=== PATIENT | male | born 1975 | race Two or more races ===

== ENCOUNTER 2017-01-17 06:20 | Emergency (ER) | payer OTHER ==
[2017-01-17 06:37] VITALS: BP 134/101; PULSE 102; TEMP 97.8; BMI 42.0
--- NOTE | 2017-01-17 07:07 | PDOC ---
History of Present Illness - General Chief Complaint: Pain, Acute Stated Complaint: ABD PAIN Time Seen by Provider: 01/17/17 07:05 - History of Present Illness Initial Comments: 01/17/17 07:07 Mr. Ordoñez is a 42 yo male with a significant past medical history of reflux who presents to the emergency department complaining of abdominal discomfort starting around 9pm last night. He says that after he ate around 6pm he could feel his symptoms starting with a peak around midnight last night. He reports he has previously seen a GI doctor and was told to take an antacid for these symptoms but denies having done so today. The patient denies chest pain, shortness of breath, headache and dizziness. Denies fever, chills, nausea, vomit, diarrhea and constipation. Denies dysuria, frequency, urgency and hematuria. Allergies: NKDA Past surgical history: Denies Past History - Past Medical History Allergies/Adverse Reactions: Allergies Allergy/AdvReac Type Severity Reaction Status Date / Time No Known Allergies Allergy Verified 01/17/17 06:35 Home Medications: Ambulatory Orders NK [No Known Home Medication] 01/17/17 - Suicide/Smoking/Psychosocial Hx Smoking History: Never smoked Have you smoked in the past 12 months: No Information on smoking cessation initiated: No Hx Alcohol Use: No Drug/Substance Use Hx: No Review of Systems - Review of Systems Comments:: 01/17/17 07:07 GENERAL/CONSTITUTIONAL: No fever or chills. No weakness. HEAD, EYES, EARS, NOSE AND THROAT: No change in vision. No ear pain or discharge. No sore throat. CARDIOVASCULAR: No chest pain or shortness of breath RESPIRATORY: No cough, wheezing, or hemoptysis. GASTROINTESTINAL: +Abdominal discomfort with "acid" since 9pm last night. No nausea, vomiting, diarrhea or constipation. GENITOURINARY: No dysuria, frequency, or change in urination. MUSCULOSKELETAL: No joint or muscle swelling or pain. No neck or back pain. SKIN: No rash NEUROLOGIC: No headache, vertigo, loss of consciousness, or change in strength/ sensation. ENDOCRINE: No increased thirst. No abnormal weight change HEMATOLOGIC/LYMPHATIC: No anemia, easy bleeding, or history of blood clots. ALLERGIC/IMMUNOLOGIC: No hives or skin allergy. *Physical Exam - Vital Signs Last Vital Signs Temp Pulse Resp BP Pulse Ox 97.8 F 102 H 20 134/101 99 01/17/17 06:33 01/17/17 06:33 01/17/17 06:33 01/17/17 06:33 01/17/17 06:33 - Physical Exam Comments: 01/17/17 07:07 GENERAL: Awake, alert, and fully oriented, in no acute distress HEAD: No signs of trauma, normocephalic, atraumatic EYES: PERRLA, EOMI, sclera anicteric, conjunctiva clear ENT: Auricles normal inspection, hearing grossly normal, nares patent, oropharynx clear without exudates. Moist mucosa NECK: Normal ROM, supple, no lymphadenopathy, JVD, or masses LUNGS: No distress, speaks full sentences, clear to auscultation bilaterally HEART: Regular rate and rhythm, normal S1 and S2, no murmurs, rubs or gallops, peripheral pulses normal and equal bilaterally. ABDOMEN: Soft, nontender, normoactive bowel sounds. No guarding, no rebound. No masses EXTREMITIES: Normal inspection, Normal range of motion, no edema. No clubbing or cyanosis. NEUROLOGICAL: Cranial nerves II through XII grossly intact. Normal speech, normal gait, no focal sensorimotor deficits SKIN: Warm, Dry, normal turgor, no rashes or lesions noted. Medical Decision Making - Medical Decision Making 01/17/17 07:18 Mr. Ordoñez presents with abdominal discomfort starting at 6pm last night. He says that he has been told to take an antacid in the past by GI but denies doing so. 01/17/17 09:35 Relief achieved with GI cocktail and symethicone. Will have patient follow-up outpatient as needed with PCP and take OTC med as needed. *DC/Admit/Observation/Transfer Diagnosis at time of Disposition: Acid reflux Qualifiers: Esophagitis presence: esophagitis presence not specified Qualified Code(s): K21.9 - Gastro-esophageal reflux disease without esophagitis; K21.9 - Gastro- esophageal reflux disease without esophagitis; K21.9 - Gastro-esophageal reflux disease without esophagitis - Discharge Dispostion Disposition: HOME - Patient Instructions Printed Discharge Instructions: DI for Gastroesophageal Reflux Disease (GERD)
[2017-01-17] MEDS ORDERED: RANITIDINE HCL 150 MG/10 ML UNIT-DOSE PO ONE (07:22)
[2017-01-17] MEDS ORDERED: LIDOCAINE VISCOUS 2% ORAL/TOP 20 ML UNIT-DOSE CUP MM ONE (07:22)
[2017-01-17] MEDS ORDERED: MAG HYDROX/AL HYDROX/SIMETH 355 ML ORAL.SUSP PO ONE (07:22)
[2017-01-17] MEDS ORDERED: MAG HYDROX/AL HYDROX/SIMETH 30 ML UNIT-DOSE CUP PO ONE (07:45)
--- NOTE | 2017-01-17 08:02 | PDOC ---
Attending Attestation - Resident Resident Name: Rhys Sanders - ED Attending Attestation I have performed the following: I have examined & evaluated the patient, The case was reviewed & discussed with the resident, I agree w/resident's findings & plan, Exceptions are as noted - HPI HPI: 01/17/17 08:35 42 years old past medical history significant for GERD presents to the emergency department with epigastric abdominal discomfort starting last evening after eating. Patient describes a gassy sensation coming and going few minutes at a time. Denies chest pain denies shortness of breath. Currently pain-free - Physicial Exam PE: 01/17/17 08:35 Vitals: Triage Vital signs reviewed General Appearance: no acute distress, well nourished well developed, Head: Atraumatic, Neck: Supple;No Nucal rigidity Chest Wall: Nontender Cardiac: Regular rate and rhythym, no murmurs, no rubs, no gallops, Lungs: Clear to auscultation bilateral, good air movement bilaterally, Rectal: Exam deferred Extremities: Full range of motion to all extremities, no cyanosis, clubbing, or edema Skin: Warm and dry, no rashes or lesions, no rash, no petechiae] - Medical Decision Making 01/17/17 08:36 Well appearing no apparent distress no cardiac risk factors EKG performed no ST elevations nonspecific T-wave inversion in lead II Patient currently asymptomatic very mild reproducible epigastric discomfort on examination History and examination consistent with dyspepsia We'll treat with GI cocktail observe and reassess <Rodney Casey - Last Filed: 01/17/17 08:34> - Medical Decision Making 01/17/17 09:41 Re-eval. Patient well-appearing no apparent distress feels better. Findings, the need for followup and strict return instructions discussed with patient. <Hua Webb - Last Filed: 01/17/17 09:42>
[2017-01-17] MEDS ORDERED: LIDOCAINE VISCOUS 2% ORAL/TOP 20 ML UNIT-DOSE CUP ONE (08:04)
[2017-01-17] MEDS ORDERED: MAG HYDROX/AL HYDROX/SIMETH 30 ML UNIT-DOSE CUP ONE (08:05)
[2017-01-17] MEDS ORDERED: RANITIDINE HCL 150 MG TABLET (FP) ONE (08:05)
[2017-01-17] MEDS: SIMETHICONE 80 MG TAB.CHEW (FP) PO ONE ×2 (08:10→09:24)
--- NOTE | 2017-01-18 13:15 | EKG ---
Test Reason : Blood Pressure : / mmHG Vent. Rate : 096 BPM Atrial Rate : 096 BPM P-R Int : 134 ms QRS Dur : 092 ms QT Int : 358 ms P-R-T Axes : 050 036 002 degrees QTc Int : 452 ms NORMAL SINUS RHYTHM NONSPECIFIC T WAVE ABNORMALITY ABNORMAL ECG NO PREVIOUS ECGS AVAILABLE CLINICAL CORRELATION IS RECOMMENDED Confirmed by THEODORE BANDA MD ([id number]) on 01/18/2017 1:15:00 PM Referred By: Confirmed By:THEODORE BANDA MD
== END 2017-01-17 10:00 | disposition home or self-care (01) ==
LOC: JER 06:20
DX: K21.9 Gastro-esophageal reflux disease without esophagitis (principal)
CPT/HCPCS: 93005; 93010; 99282-25

== ENCOUNTER 2017-02-18 06:09 | Inpatient (IN) | payer OTHER ==
[2017-02-18 06:47] VITALS: BMI 42.0
--- NOTE | 2017-02-18 07:28 | PDOC ---
History of Present Illness <Karishma Croft - Last Filed: 02/18/17 11:09> - History of Present Illness Initial Comments: 02/18/17 09:03 The patient is a 42 year old male, with a significant past medical history of GERD (nexium daily), possible carcinoid tumor (diagnosed in the ED on CT scan ), who presents to the emergency department with one day of pain to his right upper quadrant. He reports he was sitting on the couch eating soup and juice last night when he developed a sharp, nonradiating, pain to his right upper abdomen. He also reports one episode of emesis, nonbloody, this morning, as well as during this current interaction. He reports the pain has been intermittent since the onset. He reports experiencing this pain once before on Wednesday 02/07 and was seen in the emergency department on 02/08/17 where he had negative ultrasounds and an abdominal CT showing a possible carcinoid tumor. The patient was advised to seek GI follow-up and was referred to Dr. Devang Andino (appt scheduled 03/06). Last normal bowel movement was this morning when he noted a few drops of BRBPR He denies chest pain, shortness of breath, headache and dizziness. He denies fever, chills, nausea, diarrhea and constipation. He denies dysuria, frequency, urgency and hematuria. Allergies: NKDA Past surgical history: none reported Social history: Pt denies toxic habits <Damián Collins - Last Filed: 02/18/17 11:21> - General Chief Complaint: Pain Stated Complaint: ABD PAIN Time Seen by Provider: 02/18/17 07:21 Past History <Karishma Croft - Last Filed: 02/18/17 11:09> - Past Medical History COPD: No Dementia: No Dialysis: No Kidney Stones: No Seizures: No Thyroid Disease: No Lung CA: No - Surgical History Cardiac Surgery: No Cholecystectomy: No Gastric Stapling: No Lung Surgery: No - Suicide/Smoking/Psychosocial Hx Smoking History: Never smoked Have you smoked in the past 12 months: No Information on smoking cessation initiated: No Hx Alcohol Use: No Drug/Substance Use Hx: No Substance Use Type: None <Damián Collins - Last Filed: 02/18/17 11:21> - Past Medical History Allergies/Adverse Reactions: Allergies Allergy/AdvReac Type Severity Reaction Status Date / Time No Known Allergies Allergy Verified 02/18/17 06:43 Home Medications: Ambulatory Orders Esomeprazole Magnesium [Nexium 24Hr] 20 mg PO DAILY #30 capsule. 02/08/17 Review of Systems - Review of Systems Comments:: 02/18/17 09:03 GENERAL/CONSTITUTIONAL: No fever or chills. No weakness. HEAD, EYES, EARS, NOSE AND THROAT: No change in vision. No ear pain or discharge. No sore throat. GASTROINTESTINAL: (+) RUQ pain, vomiting. No nausea, diarrhea or constipation. GENITOURINARY: No dysuria, frequency, or change in urination. CARDIOVASCULAR: No chest pain or shortness of breath. RESPIRATORY: No cough, wheezing, or hemoptysis. MUSCULOSKELETAL: No joint or muscle swelling or pain. No neck or back pain. SKIN: No rash NEUROLOGIC: No headache, vertigo, loss of consciousness, or change in strength/ sensation. ENDOCRINE: No increased thirst. No abnormal weight change. HEMATOLOGIC/LYMPHATIC: No anemia, easy bleeding, or history of blood clots. ALLERGIC/IMMUNOLOGIC: No hives or skin allergy. <Damián Collins - Last Filed: 02/18/17 11:21> *Physical Exam - Vital Signs Last Vital Signs Temp Pulse Resp BP Pulse Ox 97.8 F 88 14 116/89 100 02/18/17 06:44 02/18/17 06:44 02/18/17 06:44 02/18/17 06:44 02/18/17 06:44 <Karishma Croft - Last Filed: 02/18/17 11:09> - Vital Signs Last Vital Signs Temp Pulse Resp BP Pulse Ox 97.8 F 88 14 116/89 100 02/18/17 06:44 02/18/17 06:44 02/18/17 06:44 02/18/17 06:44 02/18/17 06:44 - Physical Exam Comments: 02/18/17 09:03 GENERAL: Awake, alert, and fully oriented, in no acute distress HEAD: No signs of trauma EYES: PERRLA, EOMI, sclera anicteric, conjunctiva clear ENT: Auricles normal inspection, hearing grossly normal, nares patent, oropharynx clear without exudates. Moist mucosa NECK: Normal ROM, supple, no lymphadenopathy, JVD, or masses LUNGS: Breath sounds equal, clear to auscultation bilaterally. No wheezes, and no crackles HEART: Regular rate and rhythm, normal S1 and S2, no murmurs, rubs or gallops ABDOMEN: Soft, +RUQ ttp, negative murphys sign, normoactive bowel sounds. No guarding, no rebound. No masses RECTAL: brown stool, occult guaic pending EXTREMITIES: Normal range of motion, no edema. No clubbing or cyanosis. No cords, erythema, or tenderness BACK: No midline spinal tenderness in cervical/thoracic/lumbar region NEUROLOGICAL: Normal speech, cranial nerves intact, negative pronator drift, 5/ 5 strength in all 4 extremities, normal sensation to light touch in all 4 extremities, normal cerebellar exam, normal gait, normal reflexes and tone SKIN: Warm, Dry, normal turgor, no rashes or lesions noted. <Nassef,Yomna - Last Filed: 02/18/17 11:21> ED Treatment Course - LABORATORY CBC & Chemistry Diagram: 02/18/17 07:50 02/18/17 07:50 - ADDITIONAL ORDERS Additional order review: Laboratory Results 02/18/17 02/18/17 07:50 07:50 Sodium 141 Potassium 4.2 Chloride 101 Carbon Dioxide 29 Anion Gap 11 BUN 11 Creatinine 1.3 Creat Clearance w eGFR > 60 Random Glucose 122 H D Calcium 10.3 H Magnesium 2.6 H Total Bilirubin 0.3 D AST 20 ALT 35 Alkaline Phosphatase 109 Total Protein 8.6 H Albumin 4.2 Lipase 227 Urine Color [place] Urine Appearance Cloudy Urine pH 5.0 D Ur Specific [place] 1.033 Urine Protein 3+ H Urine Glucose (UA) Negative Urine Ketones Trace H Urine Blood Negative Urine Nitrite Negative Urine Bilirubin 2.0 Urine Urobilinogen Negative 02/18/17 07:50 RBC 5.44 MCV 83.5 MCHC 31.7 L RDW 13.5 MPV 9.9 Neutrophils % 85.4 H Lymphocytes % 8.3 D Monocytes % 5.4 Eosinophils % 0.5 Basophils % 0.4 - RADIOLOGY Radiograph Interpretation: EXAM#: TYPE/EXAM: RESULT: [id number] US/ABDOMEN US -LIMITED Right upper quadrant pain Right upper abdomen ultrasound. Compared to prior upper abdomen ultrasound dated 02/02/2017 The liver measures 16 cm in sagittal length with a moderately dense echotexture. The gallbladder is partially distended with borderline thickening of its wall. No gallstones or pericholecystic free fluid are identified. No intra or extrahepatic bile duct dilatation is seen. The right kidney measures 10.6 cm sagittal length and appears unremarkable. The pancreas was not visualized presumably due to overlying bowel gas. Visualized portion of the proximal abdominal aorta and inferior vena cava appear unremarkable. Normal flow in the main portal vein. IMPRESSION: Hepatic steatosis without gross evidence of a discrete lesion. Borderline thickening of the gallbladder wall likely due to inadequate distention without evidence of gallstones or pericholecystic free fluid. Nonvisualization of the pancreas presumably due to overlying bowel gas. Normal- appearing right kidney Reported By: Tomy Zayas MD 02/18/17 0937 - Medications Given in the ED: ED Medications Discontinued Medications Generic Name Dose Route Start Last Admin Trade Name Freq PRN Reason Stop Dose Admin Famotidine/Sodium Chloride 20 mg in 50 mls @ 100 mls/hr 02/18/17 07:31 07:55 Pepcid 20 Mg Premixed Ivpb - IVPB 02/18/17 08:00 100 mls/hr ONCE ONE Administration Ondansetron HCl 4 mg 02/18/17 07:31 02/18/17 07:55 Zofran Injection IVPUSH 02/18/17 07:32 4 mg ONCE ONE Administration Sodium Chloride 1,000 ml 02/18/17 07:31 02/18/17 08:08 Normal Saline - IV 02/18/17 07:32 1,000 ml ONCE ONE Administration <Karishma Croft - Last Filed: 02/18/17 11:09> - LABORATORY CBC & Chemistry Diagram: 02/18/17 07:50 02/18/17 07:50 <Damián Collins - Last Filed: 02/18/17 11:21> Medical Decision Making - Medical Decision Making 02/18/17 09:58 Dr. Andino, GI, was called at the office and the patient's case was discussed. 02/18/17 10:30 Dr. Raymundo was called at the office requesting a call back for service admission of this patient. I have been informed Dr. Aliya Gloria is covering for ER today. 02/18/17 10:49 Dr. Sellers was paged via phone answering service at this time. I have been informed Dr. Cuello is covering and will return the call shortly. 02/18/17 10:56 Dr. Cuello returned the call and the patient's case was discussed. He will come to see the patient. 02/18/17 10:58 Dr. Pisano returned the call and the patient's case was discussed at length. Dr. Pisano will admit this patient. <Karishma Croft - Last Filed: 02/18/17 11:09> - Medical Decision Making 02/18/17 11:17 42-year-old male with five recent visits the emergency department with abdominal pain associated with nausea and vomiting presents today with the same. His workup has thus far included normal ultrasound x2 however a CT done here 10 days ago that reveals possible carcinoid tumor. Labs today are remarkable for an uptrending leukocytosis to 19 from 13 (ten days ago) and 12 prior to that. Case has been discussed with Dr. Andino (GI) with whom the patient had an appointment next month who recommends surgical evaluation for possible exploration and admission. Case has been discussed with Dr. Solorzano from surgery who will see the patient. Patient has been admitted to Dr. Pisano for further management. Case discussed in detail with admitting physician including history, physical exam and ancillary studies. Admitting physician has assumed care for the patient, will follow all pending diagnostics and will complete the evaluation and treatment. <Damián Collins - Last Filed: 02/18/17 11:21> *DC/Admit/Observation/Transfer - Attestations Scribe Attestion: 02/18/17 09:53 Documentation prepared by Karishma Croft, acting as medical collections representative for Damián Collins MD, <Karishma Croft - Last Filed: 02/18/17 11:09> - Discharge Dispostion Admit: Yes - Attestations Physician Attestion: 02/18/17 11:21 I, Dr. Damián Collins MD, attest that this document has been prepared under my direction and personally reviewed by me in its entirety. I further attest, that it accurately reflects all work, treatment, procedures and medical decision -making performed by me. <Damián Collins - Last Filed: 02/18/17 11:21> Diagnosis at time of Disposition: Abdominal pain - Discharge Dispostion Condition at time of disposition: Stable
[2017-02-18] MEDS ORDERED: FAMOTIDINE 20 MG/50 ML IVPB 20 MG/50 ML MG IVPB ONE (07:31)
[2017-02-18] MEDS ORDERED: ONDANSETRON 4 MG/2 ML VIAL IVPUSH ONE (07:31)
[2017-02-18] MEDS ORDERED: SODIUM CHLORIDE 0.9% 500 ML INFUS.BAG IV ONE (07:31)
[2017-02-18] MEDS ORDERED: ONDANSETRON 4 MG/2 ML VIAL ONE (07:39)
[2017-02-18 08:06] LABS: BASOPHIL 0.4 % (0-2.0); EOSINOPHIL 0.5 % (0-4.5); MCH 26.4 pg (25.7-33.7); MCHC 31.7 g/dl (32.0-35.9); MEAN CELL VOLUME 83.5 fl (80-96); MEAN PLT VOLUME 9.9 fl (7.5-11.1); NEUTROPHILS 85.4 % (42.8-82.8); PLATELET COUNT 381 K/MM3 (134-434); RDW 13.5 % (11.9-15.9); WHITE BLOOD COUNT 19.4 K/mm3 (4.0-10.0)
[2017-02-18 08:35] LABS: ALBUMIN 4.2 g/dl (3.4-5.0); ANION GAP 11 (8-16); BILIRUBIN,TOTAL 0.3 mg/dL (0.2-1.0); CALCIUM 10.3 mg/dL (8.5-10.1); CO2 29 mmol/L (21-32); CREATININE 1.3 mg/dL (0.7-1.3); GLUCOSE,RANDOM 122 mg/dL (74-106); SGPT/ALT 35 U/L (12-78); TOT PROT 8.6 g/dl (6.4-8.2)
[2017-02-18 08:36] LABS: ALK PHOS 109 U/L (45-117)
[2017-02-18 08:54] LABS: MAGNESIUM 2.6 mg/dL (1.8-2.4); SGOT/AST 20 U/L (15-37)
[2017-02-18 09:05] LABS: URINE APPEARANCE CLOUDY; URINE BLOOD NEGATIVE (NEGATIVE); URINE COLOR AMBER; URINE GLUCOSE (UA) NEGATIVE (NEGATIVE); URINE KETONE TRACE (NEGATIVE); URINE NITRITE NEGATIVE (NEGATIVE); URINE UROBILINOGEN NEGATIVE mg/dL (0.2-1.0)
[2017-02-18 09:29] LABS: URINE PROTEIN 3+ (NEGATIVE)
[2017-02-18 11:28] LABS: URINE HYALINE CAST 44 /lpf; URINE MUCUS MANY; URINE RBC 3 /hpf (0-3); URINE WBC 9 /hpf (3-5)
--- NOTE | 2017-02-18 12:29 | CONSULT ---
Consult Consult Specialty:: abdominal pain Referred by:: antoinette klein Reason for Consultation:: abdominal pain multiple visits to ED - History of Present Illness Chief Complaint: right upper abdominal pain History of Present Illness: 42yo male PMH obesity, GERD on nexium presented to the ED with abdominal pain. The pain is focal to the right upper quadrant without radiation. Its is improved now. He reported that he has changed his diet recently from primarily fast food to now mainly fruit shakes. His complaints are vague, no flushing, no sweating, no indigestion, no bloating, no nausea or vomiting was reported. He reports the pain has been intermittent since the onset. He reports experiencing this pain once before on Wednesday 02/07 and was seen in the emergency department on 02/08/17 where he had negative ultrasounds and an abdominal CT showing ileum thickening. The patient was advised to follow-up with IG and was referred to Dr. Devang Andino (appt scheduled 03/06). He denies any changes in bowel habits, he moves his bowel 3 times a day, its normal frequency and consistency. he denies any blood in stool, constipation or diarrhea. we were asked to assess given his findings to date. 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 02/08/17 Review of Systems - Review of Systems Constitutional: denies: Chills, Fever, Unintentional Wgt. Loss Eyes: denies: Blurred Vision, Recent Change in Vision HENT: denies: Difficult Swallowing, Throat Pain Neck: denies: Stiffness, Swollen Glands Cardiovascular: denies: Chest Pain, Palpitations, Shortness of Breath Respiratory: denies: Cough, SOB Gastrointestinal: reports: Abdominal Pain (intermitent abdominal pain with meals , worse after food) Genitourinary: denies: Burning, Discharge Breasts: denies: Lumps, Pain Musculoskeletal: denies: Back Pain, Joint Pain Integumentary: denies: Lesions, Rash Neurological: denies: Headache, Syncope Endocrine: denies: Unexplained Weight Gain, Unexplained Weight Loss Psychiatric: denies: Anxiety, Depression Physical Exam Vital Signs: Vital Signs Temperature 97.8 F 02/18/17 06:44 Pulse Rate 88 02/18/17 06:44 Respiratory Rate 14 02/18/17 06:44 Blood Pressure 116/89 02/18/17 06:44 O2 Sat by Pulse Oximetry (%) 100 02/18/17 06:44 Vital Signs Period Temp Pulse Resp BP Sys/[place] Pulse Ox Last 24 Hr 97.8 F 88 14 116/89 100 Constitutional: Yes: No Distress, Calm, Obese Eyes: Yes: Conjunctiva Clear, EOM Intact HENT: Yes: Atraumatic, Normocephalic Neck: Yes: Supple, Trachea Midline Cardiovascular: Yes: Regular Rate and Rhythm, S1, S2. No: Murmur Respiratory: Yes: Regular, CTA Bilaterally Gastrointestinal: Yes: Normal Bowel Sounds, Soft, Abdomen, Obese, Tenderness ( Discomfort of deep palpation of right upper quadrant, No tenderness in RLQ), Other (negative negro's). No: Distention, Hernia, Palpable Mass, Tenderness, Epigastrium, Tenderness, Rebound ...Rectal Exam: Yes: Deferred Renal/: No: CVA Tenderness - Left, CVA Tenderness - Right Musculoskeletal: No: Muscle Pain, Muscle Weakness Extremities: No: Cool, Cyanosis Integumentary: No: Body Piercing Neurological: Yes: Alert, Oriented ...Motor Strength: WNL, LLE, RLE Psychiatric: Yes: Alert, Oriented Labs: CBC, BMP 02/18/17 07:50 02/18/17 07:50 CMP Sodium 141 mmol/L (136-145) 02/18/17 07:50 Potassium 4.2 mmol/L (3.5-5.1) 02/18/17 07:50 Chloride 101 mmol/L (98-107) 02/18/17 07:50 Carbon Dioxide 29 mmol/L (21-32) 02/18/17 07:50 Anion Gap 11 (8-16) 02/18/17 07:50 BUN 11 mg/dL (7-18) 02/18/17 07:50 Creatinine 1.3 mg/dL (0.7-1.3) 02/18/17 07:50 Creat Clearance w eGFR > 60 (>60) 02/18/17 07:50 Random Glucose 122 mg/dL (74-106) H D 02/18/17 07:50 Calcium 10.3 mg/dL (8.5-10.1) H 02/18/17 07:50 Magnesium 2.6 mg/dL (1.8-2.4) H 02/18/17 07:50 Total Bilirubin 0.3 mg/dL (0.2-1.0) D 02/18/17 07:50 AST 20 U/L (15-37) 02/18/17 07:50 ALT 35 U/L (12-78) 02/18/17 07:50 Alkaline Phosphatase 109 U/L (45-117) 02/18/17 07:50 Total Protein 8.6 g/dl (6.4-8.2) H 02/18/17 07:50 Albumin 4.2 g/dl (3.4-5.0) 02/18/17 07:50 Lipase 227 U/L (73-393) 02/18/17 07:50 Abnormal Lab Results 02/18/17 02/18/17 02/18/17 07:50 07:50 07:50 WBC 19.4 H D MCHC 31.7 L Neutrophils % 85.4 H Random Glucose 122 H D Calcium 10.3 H Magnesium 2.6 H Total Protein 8.6 H Urine Protein 3+ H Urine Ketones Trace H Imaging - Results Cat Scan: Report Reviewed, Image Reviewed, Other (Mid to terminal ileum is thickened, gastro entritis vs inflammatory bowel disease) Ultrasound: Report Reviewed, Image Reviewed, Other (discussed with radiologist caontracted GB with minimal thickening of the wall normal is 3 his is 3.3 GB is contracted i.e. emptying with out any other associated signs of acute inflamation) Problem List - Problems (1) Abdominal pain Assessment/Plan: 42 yo male obesity and GERD, complaining of abdominal pain. Case was reviewed and discussed with radiologist, The CT from 11/11 - thickened segment of mid to terminal ileum, could be carcinoid but he doesnt have symptoms. could also be IBD or just a transient gastroenteritis. He also doesnt appear to have cholecystitis. Doesn not appear to have an acute need for surgery but we will follow. NPO and IVF hydration Repeat labs in AM, consider a endocrine workup for carcinoid serum 5HT or urine 5HIAA Consider STEPHANIE, Rhematoid Factor, ESR, CRP - inflammatory bowel disease (chron's) , CEA - tumor marker f/u GI evaluation for IBD serial exams Code(s): R10.9 - UNSPECIFIED ABDOMINAL PAIN (2) Gastroenteritis Assessment/Plan: IVF hydration bowel rest GI prohylaxsis Code(s): K52.9 - NONINFECTIVE GASTROENTERITIS AND COLITIS, UNSPECIFIED (3) Obesity (BMI 35.0-39.9 without comorbidity) Code(s): E66.9 - OBESITY, UNSPECIFIED (4) Acid reflux Assessment/Plan: appreciate GI recommendations Code(s): K21.9 - GASTRO-ESOPHAGEAL REFLUX DISEASE WITHOUT ESOPHAGITIS Qualifiers: Esophagitis presence: esophagitis presence not specified Qualified Code(s) : K21.9 - Gastro-esophageal reflux disease without esophagitis
[2017-02-18 13:36] LABS: URINE LEUK ESTERASE Negative (NEGATIVE)
[2017-02-18] MEDS ORDERED: ONDANSETRON 4 MG/2 ML VIAL IVPUSH PRN (14:55)
--- NOTE | 2017-02-18 14:58 | HP ---
Admitting History and Physical - Admission History of Present Illness: The patient is a 42 year old male, with a significant past medical history of GERD (nexium daily), possible carcinoid tumor (diagnosed in the ED on CT scan ), who presents to the emergency department with one day of pain to his right upper quadrant. He reports he was sitting on the couch eating soup and juice last night when he developed a sharp, nonradiating, pain to his right upper abdomen. He also reports one episode of emesis, nonbloody, this morning, as well as during this current interaction. He reports the pain has been intermittent since the onset. He reports experiencing this pain once before on Wednesday 02/07 and was seen in the emergency department on 02/08/17 where he had negative ultrasounds and an abdominal CT showing a possible carcinoid tumor. The patient was advised to seek GI follow-up and was referred to Dr. Devang Andino (appt scheduled 03/06). Last normal bowel movement was this morning when he noted a few drops of BRBPR He denies chest pain, shortness of breath, headache and dizziness. He denies fever, chills, nausea, diarrhea and constipation. He denies dysuria, frequency, urgency and hematuria. 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 02/08/17 Review of Systems - Review of Systems Gastrointestinal: reports: Abdominal Pain, Bloating Physical Examination Vital Signs: Vital Signs Temperature 98.7 F 02/18/17 14:30 Pulse Rate 96 H 02/18/17 14:30 Respiratory Rate 18 02/18/17 14:30 Blood Pressure 118/87 02/18/17 14:30 O2 Sat by Pulse Oximetry (%) 99 02/18/17 13:31 Constitutional: Yes: Calm Cardiovascular: Yes: Regular Rate and Rhythm, S1, S2 Respiratory: Yes: CTA Bilaterally Gastrointestinal: Yes: Normal Bowel Sounds, Soft, Hypoactive Bowel Sounds Edema: No Labs: CBC, BMP 02/18/17 07:50 02/18/17 07:50 Problem List - Problems (1) Abdominal pain Assessment/Plan: patient had CT scan done on 02/08/17 shows small bowel wall thickening in RLQ qith dilatation if loops of small bowel proximally canot rule out neoplasm NPO for now ivf GI eval ppi scd zofran prn leukocytosis maybe sec to ? tumor no fever no dysuria no cough Code(s): R10.9 - UNSPECIFIED ABDOMINAL PAIN (2) Acid reflux Assessment/Plan: ppi Code(s): K21.9 - GASTRO-ESOPHAGEAL REFLUX DISEASE WITHOUT ESOPHAGITIS Qualifiers: Esophagitis presence: esophagitis presence not specified Qualified Code(s) : K21.9 - Gastro-esophageal reflux disease without esophagitis
[2017-02-18] MEDS: SODIUM CHLORIDE 1,000 ML IV SCH (15:51)
[2017-02-18] MEDS: morphine SULFATE 4 MG/ML VIAL IVPUSH PRN (20:15)
[2017-02-19] MEDS ORDERED: ceFAZolin SODIUM 1 GM VIAL IVPB ONE
[2017-02-19] MEDS: SODIUM CHLORIDE 1,000 ML IV SCH ×2 (01:56→10:43)
[2017-02-19] MEDS: morphine SULFATE 4 MG/ML VIAL IVPUSH PRN ×2 (01:59→14:02)
[2017-02-19 08:28] LABS: BASOPHIL 0.3 % (0-2.0); MCH 26.7 pg (25.7-33.7); MCHC 31.5 g/dl (32.0-35.9); MEAN CELL VOLUME 84.5 fl (80-96); MEAN PLT VOLUME 9.9 fl (7.5-11.1); NEUTROPHILS 75.1 % (42.8-82.8); PLATELET COUNT 269 K/MM3 (134-434); RDW 13.7 % (11.9-15.9); WHITE BLOOD COUNT 12.4 K/mm3 (4.0-10.0)
[2017-02-19 08:47] LABS: INR 1.09 (0.82-1.09); PROTHROMBIN TIME (PATIENT) 12.3 SEC (9.98-11.88)
[2017-02-19 09:00] LABS: ALBUMIN 3.1 g/dl (3.4-5.0); ALK PHOS 79 U/L (45-117); ANION GAP 7 (8-16); BILIRUBIN,TOTAL 0.4 mg/dL (0.2-1.0); CALCIUM 8.7 mg/dL (8.5-10.1); CO2 29 mmol/L (21-32); GLUCOSE,RANDOM 90 mg/dL (74-106); MAGNESIUM 2.1 mg/dL (1.8-2.4); PHOSPHOROUS 3.6 mg/dL (2.5-4.9); SGOT/AST 13 U/L (15-37); SGPT/ALT 31 U/L (12-78); TOT PROT 6.2 g/dl (6.4-8.2)
--- NOTE | 2017-02-19 09:06 | PN ---
Progress Note, Physician Chief Complaint: abdominal plain History of Present Illness: 42yo male PMH obesity, GERD on nexium, has been NPO and abdominal pain has resolved. He is comfortable now passing gas and stool. He has been afebrile. - Current Medication List Current Medications: Active Medications Sodium Chloride (Normal Saline -) 1,000 mls @ 100 mls/hr IV ASDIR CHANTELLE Last Admin: 02/19/17 01:56 Dose: 100 mls/hr Morphine Sulfate (Morphine Sulfate) 4 mg IVPUSH Q6H PRN PRN Reason: PRN Last Admin: 02/19/17 01:59 Dose: 4 mg Ondansetron HCl (Zofran Injection) 4 mg IVPUSH Q6H PRN PRN Reason: NAUSEA AND/OR VOMITING Pantoprazole Sodium (Protonix Iv) 40 mg IVPUSH DAILY [facility] - Objective Vital Signs: Vital Signs Temperature 98.0 F 02/19/17 08:52 Pulse Rate 82 02/19/17 08:52 Respiratory Rate 17 02/19/17 08:52 Blood Pressure 135/72 02/19/17 08:52 O2 Sat by Pulse Oximetry (%) 100 02/18/17 22:00 Vital Signs Period Temp Pulse Resp BP Sys/[place] Pulse Ox Last 24 Hr 97.8 F-98.7 F 75-96 17-18 117-135/72-87 99-100 Constitutional: Yes: No Distress, Calm, Obese Eyes: Yes: Conjunctiva Clear, EOM Intact HENT: Yes: Atraumatic, Normocephalic Neck: Yes: Supple, Trachea Midline Cardiovascular: Yes: Regular Rate and Rhythm, S1, S2. No: Murmur Respiratory: Yes: Regular, CTA Bilaterally Gastrointestinal: Yes: Normal Bowel Sounds, Soft, Abdomen, Obese. No: Palpable Mass, Tenderness, Tenderness, Epigastrium, Tenderness, Rebound, Vomiting Extremities: No: Calf Tenderness, Cool, Cyanosis Edema: No Peripheral Pulses WNL: Yes Peripheral Pulses: Left Radial: 2+, Right Radial: 2+, Left Doralis Pedis: 2+, Right Dorsalis Pedis: 2+ Neurological: Yes: Alert, Oriented Psychiatric: Yes: Alert, Oriented Labs: CBC, BMP 02/19/17 07:45 02/19/17 07:45 INR, PTT INR 1.09 (0.82-1.09) 02/19/17 07:45 Intake & Output 02/18/17 02/19/17 02/19/17 23:59 07:59 15:59 Intake Total 1300 800 Balance 1300 800 Intake: IV 900 800 Normal Saline - 1,000 ml 200 @ 100 mls/hr IV ASDIR CHANTELLE Rx#:[id number] SL 02/18/17 700 800 Oral 400 0 Other: # Unmeasured Voids Void 3 Problem List - Problems (1) Abdominal pain Assessment/Plan: 42 yo male obesity and GERD, abdominal pain has subsided. Considering carcinoid , IBD or gastroenteritis. NPO and IVF hydration f/u repeat labs and urine 5HIAA f/u GI evaluation for IBD, TB enteritis we will follow closely with serial exams Code(s): R10.9 - UNSPECIFIED ABDOMINAL PAIN (2) Gastroenteritis Assessment/Plan: IVF hydration bowel rest GI prohylaxsis Code(s): K52.9 - NONINFECTIVE GASTROENTERITIS AND COLITIS, UNSPECIFIED (3) Obesity (BMI 35.0-39.9 without comorbidity) Code(s): E66.9 - OBESITY, UNSPECIFIED (4) Acid reflux Assessment/Plan: appreciate GI recommendations Code(s): K21.9 - GASTRO-ESOPHAGEAL REFLUX DISEASE WITHOUT ESOPHAGITIS Qualifiers: Esophagitis presence: esophagitis presence not specified Qualified Code(s) : K21.9 - Gastro-esophageal reflux disease without esophagitis
--- NOTE | 2017-02-19 09:48 | PN ---
Progress Note (short form) - Note Progress Note: NPO except medications Prep as instructed EGD/Colonoscopy @ 430 pm today Discussed with the patient and his nurse
[2017-02-19] MEDS ORDERED: PEG3350/SOD SULF,BICARB,CL/KCL 4,000 ML SOLN.RECON PO ONE (10:00)
[2017-02-19] MEDS ORDERED: PANTOPRAZOLE SODIUM 40 MG VIAL IVPUSH SCH (10:00)
[2017-02-19] MEDS ORDERED: PROPOFOL 20 ML ONE ×4 (16:54→17:45)
--- NOTE | 2017-02-19 17:58 | PROC ---
Endoscopy Procedure Endoscopy procedure completed. Please see scanned procedure report. Duodenitis was found on EGD Pancolitis, most pronounced in left colon and rectum. Normal TI and perianal area. Inflammatory-like polyp was found in the sigmoid Multiple biopsies and a polypectomy performed Suspect IBD - Ulcerative colitis Follow biopsies in 1 week as OP OK to start low residual diet and D/C home with 1 week follow up
--- NOTE | 2017-02-19 19:23 | PN ---
Progress Note, Physician Chief Complaint: ABDOMINAL PAIN History of Present Illness: NAD, in bed had EGD today----> Ulcerative colitis seen by GI on PPI - Current Medication List Current Medications: Active Medications Sodium Chloride (Normal Saline -) 1,000 mls @ 100 mls/hr IV ASDIR [facility] Last Admin: 02/19/17 10:43 Dose: 100 mls/hr Morphine Sulfate (Morphine Sulfate) 4 mg IVPUSH Q6H PRN PRN Reason: PRN Last Admin: 02/19/17 14:02 Dose: 4 mg Ondansetron HCl (Zofran Injection) 4 mg IVPUSH Q6H PRN PRN Reason: NAUSEA AND/OR VOMITING Pantoprazole Sodium (Protonix Iv) 40 mg IVPUSH DAILY [facility] Last Admin: 02/19/17 10:04 Dose: 40 mg - Objective Vital Signs: Vital Signs Temperature 97.2 F L 02/19/17 18:52 Pulse Rate 86 02/19/17 18:52 Respiratory Rate 20 02/19/17 18:52 Blood Pressure 157/105 02/19/17 18:52 O2 Sat by Pulse Oximetry (%) 99 02/19/17 18:35 Constitutional: Yes: Well Nourished, No Distress, Calm Cardiovascular: Yes: Regular Rate and Rhythm Respiratory: Yes: Regular Gastrointestinal: Yes: Normal Bowel Sounds, Soft, Abdomen, Obese Edema: No Peripheral Pulses WNL: Yes Neurological: Yes: Alert, Oriented Psychiatric: Yes: Alert, Oriented Labs: CBC, BMP 02/19/17 07:45 02/19/17 07:45 INR, PTT INR 1.09 (0.82-1.09) 02/19/17 07:45 Problem List - Problems (1) Ulcerative colitis Assessment/Plan: -EGD done seen by GI PPI follow up outpatient low residual diet Code(s): K51.90 - ULCERATIVE COLITIS, UNSPECIFIED, WITHOUT COMPLICATIONS (2) Abdominal pain Assessment/Plan: PPI follow up with GI in 1 week Code(s): R10.9 - UNSPECIFIED ABDOMINAL PAIN Assessment/Plan see problem list
[2017-02-19 20:02] VITALS: BP 150/85; PULSE 83; TEMP 97.7
[2017-02-22 16:11] LABS: QFT TB AG - NIL VALUE <0.01 IU/mL (.); QUANT MITOGEN VALUE >10.00 IU/mL (.); QUANT NIL VALUE 0.06 IU/mL (.); QUANT TB AG VALUE 0.05 IU/mL (.); QUANTIFERON GOLD Negative (Negative)
--- NOTE | 2017-02-24 10:56 | PATH ---
Surgical Pathology Report Patient Name: XENIA GAY [facility]. Rec. #: [id number] /Age/Gender: 1975 (Age: 42) / M Account: [id number] Location: [address] [place] [address]/[facility] Taken: 02/19/2017 Received: 02/21/2017 Reported: 02/24/2017 Physicians: Gil Sewell M.D. Specimen(s) Received A: 2ND PORTION OF JUJUNUM BX B: ANTRUM AND BODY C: BX TERMINAL ILEUM D: ASCENDING COLON POLYP E: ASCENDING COLON BX F: ASCENDING COLON POLYP #2 G: TRANSVERSE COLON RANDOM BX H: DESCENDING COLON RANDOM BX I: DISTAL DESCENDING CYNDI BX J: SIGMOID RANDOM BX K: POLYP RANDOM SIGMOID L: BX RECTUM Clinical History Abdominal pain Final Diagnosis A. DESIGNATED SECOND PORTION OF JEJUNUM, BIOPSY: DUODENAL MUCOSA WITH NO PATHOLOGIC CHANGES. NO HISTOLOGIC EVIDENCE OF GLUTEN SENSITIVE ENTEROPATHY (CELIAC SPRUE) IDENTIFIED. B. STOMACH, ANTRUM AND BODY, BIOPSY: GASTRIC ANTRAL MUCOSA WITH REACTIVE GASTROPATHY, AND GASTRIC FUNDIC MUCOSA WITH MILD HYPERPLASTIC CHANGES. IMMUNOSTAIN FOR H. PYLORI IS NEGATIVE. C. TERMINAL ILEUM, BIOPSY: SMALL INTESTINAL MUCOSA WITH NO PATHOLOGIC CHANGES. NO ACTIVE INFLAMMATION, ARCHITECTURAL DISTORTION, GRANULOMAS, OR DYSPLASIA IDENTIFIED. D. COLON, ASCENDING POLYP, BIOPSY: TUBULAR ADENOMA. E. COLON, ASCENDING, BIOPSY: COLONIC MUCOSA WITH NO PATHOLOGIC CHANGES. NO ACTIVE COLITIS, ARCHITECTURAL DISTORTION, GRANULOMATA, OR DYSPLASIA IDENTIFIED. NO MICROSCOPIC COLITIS IDENTIFIED (NO LYMPHOCYTIC OR COLLAGENOUS COLITIS IDENTIFIED). F. COLON, ASCENDING POLYP #2, BIOPSY: TUBULAR ADENOMA. G. COLON, TRANSVERSE, BIOPSY: COLONIC MUCOSA WITH REACTIVE HYPERPLASIA OF MUCOSA ASSOCIATED LYMPHOID TISSUE. NO ACTIVE INFLAMMATION, ARCHITECTURAL DISTORTION, GRANULOMATA, OR DYSPLASIA IDENTIFIED. H. COLON, DESCENDING, BIOPSY: COLONIC MUCOSA WITH NO PATHOLOGIC CHANGES. NO ACTIVE COLITIS, ARCHITECTURAL DISTORTION, GRANULOMATA, OR DYSPLASIA IDENTIFIED. NO MICROSCOPIC COLITIS IDENTIFIED (NO LYMPHOCYTIC OR COLLAGENOUS COLITIS IDENTIFIED). I. COLON, DISTAL DESCENDING, BIOPSY: COLONIC MUCOSA WITH REACTIVE HYPERPLASIA OF MUCOSA ASSOCIATED LYMPHOID TISSUE. NO ACTIVE INFLAMMATION, ARCHITECTURAL DISTORTION, GRANULOMATA, OR DYSPLASIA IDENTIFIED. J. COLON, SIGMOID, BIOPSY: COLONIC MUCOSA WITH NO PATHOLOGIC CHANGES. NO ACTIVE COLITIS, ARCHITECTURAL DISTORTION, GRANULOMATA, OR DYSPLASIA IDENTIFIED. NO MICROSCOPIC COLITIS IDENTIFIED (NO LYMPHOCYTIC OR COLLAGENOUS COLITIS IDENTIFIED). K. COLON, SIGMOID POLYP, POLYPECTOMY: TUBULAR ADENOMA. L. COLON, RECTUM, BIOPSY: COLONIC MUCOSA WITH NON-SPECIFIC SUPERFICIAL ULCERATION AND ASSOCIATED ACTIVE INFLAMMATION. NO ARCHITECTURAL DISTORTION, GRANULOMATA OR DYSPLASIA IDENTIFIED. Electronically Signed Tyrone Walker M.D. Gross Description A. Received in formalin, labeled "second portion of jejunum" are three pieces of light hill soft tissue ranging from 0.2-0.3 cm in greatest dimension. Entirely submitted one cassette. B. Received in formalin, labeled "antrum and body" are three pieces of [place] soft tissue ranging from 0.2-0.4 cm in greatest dimension. Entirely submitted one cassette. C. Received in formalin, labeled "terminal ileum" are two pieces of light [place] soft tissue measuring 0.3 cm and 0.4 cm in greatest dimension. Entirely submitted one cassette. D. Received in formalin, labeled "ascending colon polyp" is one piece of light [place] soft tissue measuring 0.3 cm in greatest dimension. Entirely submitted one cassette. E. Received in formalin, labeled "ascending colon biopsy" are two pieces of light hill soft tissue each up to 0.5 cm in greatest dimension. Entirely submitted one cassette. F. Received in formalin, labeled "ascending colon polyp #2" is one piece of light [place] soft tissue measuring 0.4 cm in greatest dimension. Entirely submitted one cassette. G. Received in formalin, labeled "transverse colon random" are three piece of light hill soft tissue ranging from 0.1-0.3 cm in greatest dimension. Entirely submitted one cassette. H. Received in formalin, labeled "descending colon random" are two pieces of light [place] soft tissue measuring 0.1 cm and 0.3 cm in greatest dimension. Entirely submitted one cassette. I. Received in formalin, labeled "distal descending random" are three piece of light [place] soft tissue ranging from 0.2-0.4 cm in greatest dimension. Entirely submitted one cassette. J. Received in formalin, labeled "sigmoid random biopsy" are three pieces of light [place] soft tissue each up to 0.3 cm in greatest dimension. Entirely submitted one cassette. K. Received in formalin, labeled "sigmoid polyp" is a 0.8 x 0.5 x 0.2 cm portion of polypoid light [place] soft tissue. Entirely submitted one cassette. L. Received in formalin, labeled "rectal biopsy" are three pieces of light [place] soft tissue ranging from 0.1-0.3 cm in greatest dimension. Entirely submitted one cassette. ebram/02/21/2017
== END 2017-02-19 20:30 | disposition home or self-care (01) | DRG 245 ==
LOC: JER 06:09 → JERBED 11:22 → J5S 14:28
PROVIDERS: ADMIT Student in an Organized Health Care Education/Training Program; ATTEND Student in an Organized Health Care Education/Training Program
PROC: 0DDE8ZX Extraction of Large Intestine, Via Natural or Artificial Opening Endoscopic, Diagnostic (ICD-10-PCS; 2017-02-19)
PROC: 0DJ08ZZ Inspection of Upper Intestinal Tract, Via Natural or Artificial Opening Endoscopic (ICD-10-PCS; 2017-02-19)
PROC: 0DBN8ZX Excision of Sigmoid Colon, Via Natural or Artificial Opening Endoscopic, Diagnostic (ICD-10-PCS; principal; 2017-02-19 16:30)
DX: K51.90 Ulcerative colitis, unspecified, without complications (principal); K76.0 Fatty (change of) liver, not elsewhere classified; K29.80 Duodenitis without bleeding; D12.5 Benign neoplasm of sigmoid colon; E66.9 Obesity, unspecified; Z68.35 Body mass index [BMI] 35.0-35.9, adult; K21.9 Gastro-esophageal reflux disease without esophagitis
CPT/HCPCS: 36415; 76705-TC; 80053; 81003; 81015; 82272; 82378; 82941; 83036; 83497; 83690; 83735; 83970; 84100; 85025; 85610; 85651; 86038; 86140; 86431; 86480; 87086; 88305-TC; 94760; 99285-25

== ENCOUNTER 2018-05-09 22:50 | Emergency (ER) | payer OTHER ==
[2018-05-09 23:00] VITALS: BP 152/103; PULSE 99; TEMP 98.5; BMI 41.1
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
[2018-05-10] MEDS ORDERED: KETOROLAC TROMETHAMINE 60 MG/2 ML VIAL IM ONE (00:58)
[2018-05-10] MEDS ORDERED: KETOROLAC TROMETHAMINE 60 MG/2 ML VIAL ONE (01:18)
[2018-05-10] MEDS ORDERED: CYCLOBENZAPRINE HCL 10 MG TABLET (FP) PO ONE (01:27)
[2018-05-10] MEDS ORDERED: CYCLOBENZAPRINE HCL 10 MG TABLET (FP) ONE (01:34)
== END 2018-05-10 01:45 | disposition home or self-care (01) ==
LOC: JER 22:50
PROC: 3E0233Z Introduction of Anti-inflammatory into Muscle, Percutaneous Approach (ICD-10-PCS; principal; 2018-05-09)
DX: M54.5 Low back pain (principal); V43.52XA Car driver injured in collision with other type car in traffic accident, initial encounter; Y92.488 Other paved roadways as the place of occurrence of the external cause; Y93.89 Activity, other specified; Y99.8 Other external cause status; K21.9 Gastro-esophageal reflux disease without esophagitis; Z85.020 Personal history of malignant carcinoid tumor of stomach
CPT/HCPCS: 96372; 99281-25